=== PATIENT | male | born 1930 | race Caucasian/White ===

== ENCOUNTER 2018-09-23 14:13 | Inpatient (IN) | payer MEDICARE, BC ==
[~2018-09-23] VITALS: Ht 172.7 cm; Wt 72.6 kg
[2018-09-23 14:35] LABS: BASO % 0.4 % (0.0-2.0); EOS % 0.1 % (0-4.0); GRAN # 6.9 (1.4-6.5); GRAN % 80.5 % (42.2-75.2); HEMATOCRIT 41.3 % (42.0-52.0); HEMOGLOBIN 13.6 g/dl (13.5-18.0); LYMPH # 1.2 (1.2-3.4); LYMPH % 14.4 % (20.0-51.0); MEAN CELL VOLUME 94 fl (80.0-100.0); MEAN CORPUSCULAR HEMOGLOBIN 31 pg (27.0-31.0); MEAN CORPUSCULAR HGB CONC 33 g/dl (33.0-37.0); MEAN PLATELET VOLUME 10.3 fl (7.4-10.4); MONO # 0.4 (0.1-0.6); MONO % 4.2 % (1.7-9.3); PLATELET COUNT 206 K/mm3 (130-400); RED BLOOD COUNT 4.38 M/mm3 (4.20-5.60); REDCELL DISTRIBUTION WIDTH-CV 13.7 % (11.5-14.5)
[2018-09-23 14:52] LABS: ALANINE AMINOTRANSFERASE 25 U/L (21-72); ALBUMIN 4.2 gm/dL (3.5-5.0); ALKALINE PHOSPHATASE 91 U/L (50-136); ANION GAP 13 mmol/L (7-16); AST,SGOT 36 U/L (15-37); BILIRUBIN,TOTAL 0.8 mg/dL (0.0-1.0); BLOOD UREA NITROGEN 25 mg/dL (9-20); CALCIUM 9.5 mg/dL (8.4-10.2); CARBON DIOXIDE 23 mmol/L (22-30); CHLORIDE 101 mmol/L (98-107); CREATININE, serum 1.08 mg/dL (0.66-1.25); GLUCOSE 170 mg/dL (74-106); LIPASE 240 U/L (23-300); POTASSIUM 3.9 mmol/L (3.4-5.0); SODIUM 138 mmol/L (137-145); TOTAL PROTEIN 7.5 gm/dL (6.4-8.2)
[2018-09-23 15:00] LABS: C-REACTIVE PROTEIN < 0.5 mg/dL (0.0-0.9)
[2018-09-23] MEDS ORDERED: ZYLOPRIM 100MG100 MG PO ×2 (15:30→15:43)
[2018-09-23] MEDS ORDERED: PRINZIDE 25 MG-1 TAB PO (15:31)
[2018-09-23] MEDS ORDERED: HCTZ 25MG TAB25 MG PO (15:43)
[2018-09-23] MEDS ORDERED: ASPIRIN 81M81 MG/TA2 PO (15:43)
[2018-09-23] MEDS ORDERED: MULTI VITAMINS1 TAB PO (15:43)
[2018-09-23] MEDS ORDERED: LIPITOR 40MG TA40 MG PO (15:44)
[2018-09-23] MEDS ORDERED: COLACE 100100 MG/CAP PO (15:44)
--- NOTE | 2018-09-23 18:20 | NUR ---
Received patient from ED. States very little pain or nausea at this time. NPO. IV fluids infusing.
[2018-09-23] MEDS ORDERED: PROBIOTIC-MAJOR PO (18:22)
[2018-09-23 18:34] VITALS: BP 131/59; PULSE 47; TEMP 97.3
[2018-09-23 21:37] VITALS: BP 138/64; PULSE 85; TEMP 98.4
[2018-09-24] VITALS (13 sets, daily range): BP systolic 99–134; BP diastolic 42–67; PULSE 83–98; TEMP 97.8–99.5
[2018-09-24 00:10] LABS: COLLECTION METHOD CLEAN CATCH
[2018-09-24 00:15] LABS: MUCOUS Present /lpf; PH 5 (5-8); SQUAMOUS EPITHELIAL None Seen /hpf; URINE APPEARANCE Clear; URINE BACTERIA None Seen /hpf; URINE BILIRUBIN Negative (NEGATIVE); URINE BLOOD Negative (NEGATIVE); URINE COLOR Yellow; URINE GLUCOSE 1+ (NEGATIVE); URINE KETONE 1+ (NEGATIVE); URINE LEUKOCYTE ESTERASE Negative (NEGATIVE); URINE NITRATE Negative (NEGATIVE); URINE PROTEIN(semi-quant) Negative (NEGATIVE); URINE RBC 0-2 /hpf; URINE UROBILINOGEN Negative (NEGATIVE)
--- NOTE | 2018-09-24 05:36 | NUR ---
Patient has rested intermittently overnight. Patient has required medications for pain and nausea throughout the night. Patient has had both nausea and vomiting, mostly controlled with zofran. Patient's pain has required both PRN morphine and dilaudid, and required a dose increase from flotation tender helper surgeon before it was well managed. Patient has managed to rest since last dose. Continues to wear O2 at 3L via NC, denies further needs at this time, call light within reach.
[2018-09-24 07:26] LABS: BASO % 0.2 % (0.0-2.0); GRAN # 7.7 (1.4-6.5); GRAN % 76.4 % (42.2-75.2); LYMPH # 1.4 (1.2-3.4); MEAN CELL VOLUME 96 fl (80.0-100.0); MEAN CORPUSCULAR HGB CONC 33 g/dl (33.0-37.0); MEAN PLATELET VOLUME 10.7 fl (7.4-10.4); MONO # 0.9 (0.1-0.6); MONO % 8.9 % (1.7-9.3); PLATELET COUNT 194 K/mm3 (130-400); REDCELL DISTRIBUTION WIDTH-CV 14.1 % (11.5-14.5)
[2018-09-24 07:46] LABS: HEMATOCRIT 34.4 % (42.0-52.0); HEMOGLOBIN 11.3 g/dl (13.5-18.0); MEAN CORPUSCULAR HEMOGLOBIN 31 pg (27.0-31.0)
[2018-09-24 07:47] LABS: CALCIUM 8.9 mg/dL (8.4-10.2); CREATININE, serum 1.11 mg/dL (0.66-1.25); POTASSIUM 4.4 mmol/L (3.4-5.0)
--- NOTE | 2018-09-24 09:00 | NUR ---
Alert, drowsy. Complained of a lot of pressure in lower abdomen. NPO. IV fluids infusing. Dr. Urbina saw patient. Abdominal x-ray done. Medicated with Dilaudid. Vital signs stable. Son at bedside.
--- NOTE | 2018-09-24 13:45 | NUR ---
Slept for long periods of time after pain medication. Surgical consent signed. To surgery per bed with OR staff.
--- NOTE | 2018-09-24 17:40 | NUR ---
Received patient from PACU per bed. Alert. No c/o pain or nausea. Epidural infusing. Abdominal dressing CDI. VSS. Taking sips of water. Family in room.
--- NOTE | 2018-09-24 20:00 | NUR ---
Patient in bed resting. Family at bedside. Alert and oriented x 3. Shift assessment complete. Gomez to dependent drainage with clear sheldon urine present. IV fluids infusing via pump to right forarm. Abdominal dressing with shadowing present. SCDs to BLE. Epidural infusing. Denies pain or further needs at this time.
[2018-09-25 03:39] VITALS: BP 116/54; PULSE 99; TEMP 99.9
--- NOTE | 2018-09-25 05:57 | NUR ---
Patient has rested well through the night. Minimal needs. Gomez maintained to dependent drainage with clear sheldon urine present. SCDs to BLE. Epidural infusing. Denies further needs at this time. Will report off to day shift.
[2018-09-25 06:19] LABS: BASO % 0.1 % (0.0-2.0); GRAN # 5.8 (1.4-6.5); GRAN % 79.1 % (42.2-75.2); HEMOGLOBIN 10.5 g/dl (13.5-18.0); LYMPH # 0.9 (1.2-3.4); LYMPH % 12.4 % (20.0-51.0); MEAN CELL VOLUME 97 fl (80.0-100.0); MEAN CORPUSCULAR HEMOGLOBIN 31 pg (27.0-31.0); MEAN CORPUSCULAR HGB CONC 32 g/dl (33.0-37.0); MEAN PLATELET VOLUME 10.7 fl (7.4-10.4); MONO # 0.6 (0.1-0.6); PLATELET COUNT 167 K/mm3 (130-400); RED BLOOD COUNT 3.37 M/mm3 (4.20-5.60); REDCELL DISTRIBUTION WIDTH-CV 14.4 % (11.5-14.5)
[2018-09-25 06:26] LABS: CALCIUM 8.1 mg/dL (8.4-10.2); CREATININE, serum 1.09 mg/dL (0.66-1.25); POTASSIUM 4.3 mmol/L (3.4-5.0)
[2018-09-25 06:29] LABS: HEMATOCRIT 32.6 % (42.0-52.0)
[2018-09-25 08:08] VITALS: BP 151/81; PULSE 100; TEMP 98.8
--- NOTE | 2018-09-25 09:03 | NUR ---
Initial visit; Patient thanked Production Machinist for looking in him though declined spiritual care at this time.
--- NOTE | 2018-09-25 10:17 | NUR ---
Patient assisted to sit up in chair this am. He did well. Epidural manages pain. Zofran for nausea this am, nausea improved now. He is working on a clear liquid tray. Ivf per orders to RFA. Midline dressing intact-shadowing noted to dressing. abdomen soft-he denies passing flatus, but does report belching. Scds ble. encouraged coughing & deep breathing. Will monitor
[2018-09-25 11:50] VITALS: BP 133/71; PULSE 94; TEMP 97.9
--- NOTE | 2018-09-25 12:59 | NUR ---
Patient stood at the sink and brushed his teeth & now resting back in bed. Denies pain, will monitor.
[2018-09-25 15:57] VITALS: BP 141/65; PULSE 93; TEMP 98.5
--- NOTE | 2018-09-25 16:06 | NUR ---
Patient resting. rounded this afternoon. Continues slowly with clears. Will monitor.
--- NOTE | 2018-09-25 16:35 | NUR ---
SW met with patient to discuss discharge planning. Patient lives in [place] but is visiting family here in [place]. Patient reports he has a PCP in [place] and does not use any medical equipment or home health. He also reports he will be moving into an assited living facility in [place]. Patient has a DPOA. SW does not anticipate any needs upon discharge.
--- NOTE | 2018-09-25 18:11 | NUR ---
Patient up and ambulated halls this afternoon & did very well, he is normally very active, plays tennis. He is still tolerating clears slowly. denies nausea, pain managed. Will monitor
--- NOTE | 2018-09-25 20:00 | NUR ---
Patient in chair resting. Daughter in law at bedside. Alert and oriented x 3. Shift assessment complete. Abdominal dressing with shadowing noted. Gomez to dependent drainage with clear sheldon urine present. IVF to right forarm. Epidural in place. Denies passing gas. Denies pain or further needs at this time.
[2018-09-25 20:24] VITALS: BP 121/57; PULSE 94; TEMP 98.3
[2018-09-26 03:47] VITALS: BP 134/88; PULSE 85; TEMP 98
--- NOTE | 2018-09-26 06:22 | NUR ---
Patient has rested well through the night. Minimal needs. Continues to deny pain. Epidural site intact. IV fluids infusing via pump to right forarm. Patient up to sink, performed own oral care. Gomez maintained to dependent drainage with clear sheldon urine present in bag. Patient up to chair this AM. Continues to deny passing gas through the night. Denies further needs at this time. Will report off to day shift.
--- NOTE | 2018-09-26 07:00 | NUR ---
Reported on to primary nurse Anitha PULLIAM.
[2018-09-26 07:15] VITALS: BP 136/65; PULSE 72; TEMP 97.6
--- NOTE | 2018-09-26 08:20 | NUR ---
Pt. resting in bed. Bilateral upper lobes, lung sounds clear. Bilateral lower lobes, lung sounds diminished. Notified primary nurse Anitha PULLIAM. Pt practiced using IS x 10, got up to 1000. Pt. reports still not passing flatus. Emptied saucedo catheter and noted 125 ml of yellow, clear urine. Cathether secured in place. Abd. midline incision edges well approx. Abd. lap site edges well approx. No redness, pain, or tenderness when palpated. Peripheral line in RFA intact flowing @ 125 ml/hr w/ 1000 ml of NS. No redness, pain, or tenderness @ IV site. Rewrapped bandage around IV. VSS. O2 running @ 3 L via nasal canula.
--- NOTE | 2018-09-26 09:30 | NUR ---
Patient alert and oriented, answers questions appropriately. See assessment. Abdomen soft, non distended. Bowel sounds active x4 quads. Midline incision with lucita intact, edges well approximated, no drainage noted. +Flatus. Epidural catheter in place with no redness or drainage noted. PCEA settings verified against the MAR. No numbness or tingling noted to BLE. No c/o at this time.
--- NOTE | 2018-09-26 10:10 | NUR ---
Pt. ambulated 12 minutes. Went back to bed, put SCDs and 02 back on @ 3L via nasal canula.
[2018-09-26 11:25] VITALS: BP 129/71; PULSE 82; TEMP 98.2
--- NOTE | 2018-09-26 11:58 | NUR ---
Reported off to primary nurse Anitha PULLIAM.
[2018-09-26 16:05] VITALS: BP 128/69; PULSE 99; TEMP 98.9
[2018-09-26 19:57] VITALS: BP 144/79; PULSE 97; TEMP 98.5
--- NOTE | 2018-09-26 20:00 | NUR ---
Patient in chair resting. Alert and oriented x 3. Shift assessment complete. Assisted patient back to bed, stand by assist. Gomez to dependent drainage with clear sheldon urine present. Epidural intact. IV to right forarm discontinued, catheter tip intact. Patient tolerated procedure well. Restarted IV to left AC, x 4 attempts. IV fluids infusing via pump. Patient denies passing gas. Midline incision with edges well approximated. Denies pain or further needs at this time. SCDs to BLE.
[2018-09-27 00:14] VITALS: BP 141/70; PULSE 85; TEMP 98.5
--- NOTE | 2018-09-27 00:30 | NUR ---
Contacted Anesthesiologist, patients epidural is out of medication. Per anasthesiologist, can turn epidural off.
[2018-09-27 04:52] VITALS: BP 117/62; PULSE 96; TEMP 98.6
--- NOTE | 2018-09-27 05:24 | NUR ---
Patient has rested well through the night. Minimal needs. Epidural site intact. SCDs to BLE. Midline with lucita intact, edges well approximated. Denies pain at this time. Denies passing gas. Denies further needs at this time. SCDs to BLE. Will report off to day shift.
[2018-09-27 09:16] VITALS: BP 127/60; PULSE 89; TEMP 98.4
--- NOTE | 2018-09-27 10:18 | NUR ---
Patient alert and oriented, answers questions appropriately. See assessment. Abdomen soft, non tender, non distended. Bowel sounds active x4 quads. +Flatus. Midline and lap site with edges well approximated, lucita intact. Epidural catheter in place with no redness or drainage noted. Neuros intact to BLE, pulses palpable. Gomez catheter patent and draining clear yellow urine. Ambulation and post op exercises encouraged. No c/o at this time.
--- NOTE | 2018-09-27 11:00 | NUR ---
Gomez catheter and epidural catheter removed at this time with no complications.
[2018-09-27 12:24] VITALS: BP 134/61; PULSE 90; TEMP 99
[2018-09-27 16:26] VITALS: BP 149/73; PULSE 87; TEMP 98.8
--- NOTE | 2018-09-27 20:23 | NUR ---
PT RESTING in bed A+Ox4. reports no pain. no soa. pt on 1L O2 via NC. shift assessment complete. no needs at this time. call light in reach
[2018-09-27 20:54] VITALS: BP 135/78; PULSE 79; TEMP 98.2
--- NOTE | 2018-09-28 04:14 | NUR ---
pt resting in bed. reports no pain. SCDs on. vitals stable. no needs at this time. call light in reach
[2018-09-28 04:30] VITALS: BP 138/74; PULSE 77; TEMP 97.6
--- NOTE | 2018-09-28 05:51 | NUR ---
pt had an uneventful night. no pain. pt on 1L O2 via NC. no SOA. no needs at this time. call light in reach
--- NOTE | 2018-09-28 06:37 | NUR ---
report given to SHASHA Welsh. pt reports no needs
[2018-09-28 07:47] VITALS: BP 163/74; PULSE 82; TEMP 97.6
--- NOTE | 2018-09-28 09:00 | NUR ---
Patient alert and oriented, answers questions appropriately. See assessment. Abdomen soft, non tender, non distended. Bowel sounds active x4 quads. +Flatus. Midline incision with edges well approximated, lucita intact, no drainage noted. No c/o at this time.
--- NOTE | 2018-09-28 09:10 | NUR ---
Initial visit; Patient thanked Poultry Packer for looking in on him though declined Spiritual Care at this time.
--- NOTE | 2018-09-28 09:50 | NUR ---
JOSE and SW student met with the patient to review discharge plan. The patient reports that he plans to return to his son and [id number]'s house in [place] upon discharge. The patient did state that he had a concern about navigating on stairs, but that there is only one step into his son's house. JOSE informed the patient's nurse and requested PT. The patient's nurse to order PT and SW to continue to follow.
--- NOTE | 2018-09-28 16:16 | NUR ---
PT worked with the patient and recommend home. The patient is to discharge to his son's house today, 09/28. SW presented and explained the IM form to the patient. The patient verbalized understanding, signed, and he was provided a copy. No additional needs at this time.
--- NOTE | 2018-09-28 17:02 | NUR ---
Discharge instructions reviewed with patient and family, verbalized understanding. Discharged via wheelchair to auto/home with family at 1700.
== END 2018-09-28 17:00 | disposition home or self-care (01) | DRG 329 ==
LOC: COL.ER 14:13 → SURG 16:32 → EDBEDREQ 17:05 → SURG 09-28 17:00
PROVIDERS: Family Medicine; ADMIT Surgery
PROC: 0DT80ZZ Resection of Small Intestine, Open Approach (ICD-10-PCS; principal; 2018-09-24 15:00)
PROC: 0WJP4ZZ Inspection of Gastrointestinal Tract, Percutaneous Endoscopic Approach (ICD-10-PCS; 2018-09-24 15:00)
DX: K56.52 Intestinal adhesions [bands] with complete obstruction (principal); K55.021 Focal (segmental) acute infarction of small intestine; Z87.891 Personal history of nicotine dependence; I25.10 Atherosclerotic heart disease of native coronary artery without angina pectoris
CPT/HCPCS: A4314; A9284; J0690; J1170; J2270; J2405; J2704; J2710; J3010; J7030; J7120; Q9967